=== PATIENT | male | born 1985 | race Caucasian/White ===

== ENCOUNTER → 2016-11-02 | Outpatient (CLI) | payer BC ==
--- NOTE | 2016-11-02 12:04 | DIAGNOSTIC IMAGING REPORT ---
[facility]UB CLINICAL HISTORY: Nephrolithiasis. FINDINGS: 3 AP abdominal radiographs are compared to study dated 01/18/2016. There is a nonobstructed abdominal bowel gas pattern. There is no radiographic evidence of nephrolithiasis on today's examination. A large phlebolith is again seen in the right hemipelvis. The bony structures are intact as imaged. IMPRESSION: There is no radiographic evidence of nephrolithiasis on today's examination. Electronically signed by: Esteban Yeboah M.D. 11/02/2016 12:03 PM Dictated Date/Time: 11/02/2016 12:02 PM
== END | disposition home or self-care (01) ==
LOC: C.RAD 10:55
PROVIDERS: ATTEND Urology
DX: N20.0 Calculus of kidney (principal)

== ENCOUNTER → 2017-02-13 | Outpatient (CLI) | payer BC ==
--- NOTE | 2017-02-13 20:39 | DIAGNOSTIC IMAGING REPORT ---
KUB CLINICAL HISTORY: Orchalgia. COMPARISON STUDY: KUB November 02, 2016. FINDINGS: A right pelvic calcification is unchanged and reflects a phlebolith. No urinary calculi are identified on this exam. Renal shadows are partially obscured by stool. IMPRESSION: No urinary calculi identified. Electronically signed by: Dane Dominguez M.D. 02/13/2017 8:38 PM Dictated Date/Time: 02/13/2017 8:37 PM
== END | disposition home or self-care (01) ==
LOC: C.RAD 17:42
PROVIDERS: ATTEND Urology
DX: N50.819 Testicular pain, unspecified (principal)

== ENCOUNTER → 2017-02-14 | Outpatient (CLI) | payer BC ==
--- NOTE | 2017-02-14 11:58 | DIAGNOSTIC IMAGING REPORT ---
[facility] CLINICAL HISTORY: Epididymitis. Orchalgia. COMPARISON STUDY: None. TECHNIQUE: Grayscale and color and duplex Doppler sonography of the scrotum was performed. FINDINGS: The right testis measures 3.9 x 2.7 x 2.1 cm and the left measures 3.6 x 2.3 x 1.8 cm. Color flow within each testis is symmetric. There is no testicular mass. The right epididymis is heterogeneous, mildly enlarged and hypervascular when compared to the left. There are small right epididymal cysts. There are small bilateral hydroceles and a small left varicocele. IMPRESSION: 1. Findings suggestive of right-sided epididymitis. No abscess. 2. Normal sonographic appearance of the testes. 3. Small left varicocele and small bilateral hydroceles. Electronically signed by: Dane Dominguez M.D. 02/14/2017 11:57 AM Dictated Date/Time: 02/14/2017 11:55 AM
== END | disposition home or self-care (01) ==
LOC: C.ULTR 11:10
PROVIDERS: ATTEND Nurse Practitioner Family
DX: N45.1 Epididymitis (principal); N50.819 Testicular pain, unspecified; I86.1 Scrotal varices; N43.3 Hydrocele, unspecified

== ENCOUNTER → 2017-02-14 | Outpatient (CLI) | payer BC | END | disposition home or self-care (01) | LOC: C.LABSPEC 16:58 | PROVIDERS: ATTEND Nurse Practitioner Family | DX: N45.1 Epididymitis (principal); N50.819 Testicular pain, unspecified ==

== ENCOUNTER 2017-07-11 18:53 | Emergency (ER) | payer BC ==
[~2017-07-11] VITALS: Ht 182.9 cm; Wt 100.8 kg
[2017-07-11 18:58] VITALS: TEMP 37.1; Ht 182.9 cm; Wt 100.8 kg
[2017-07-11] MEDS ORDERED: SERT25TA PO (19:08)
[2017-07-11] MEDS ORDERED: SEPTRA DS HOME PACK 1 EA VIAL PO ONE (19:45)
[2017-07-11] MEDS ORDERED: NORCO 5/325MG HOME PACK PO ONE (19:45)
[2017-07-11] MEDS ORDERED: CEPHALEXIN 500MG HOME PACK 1 EA BTL PO ONE (19:45)
[2017-07-11] MEDS ORDERED: CEPH500C2 PO (19:48)
[2017-07-11] MEDS ORDERED: HYDR-5688 PO (19:48)
[2017-07-11] MEDS ORDERED: SULF800T23 PO (19:48)
[2017-07-11 20:41] VITALS: BP 138/85; PULSE 84; O2SAT 97
--- NOTE | 2017-07-11 21:04 | EMERGENCY ROOM VISIT NOTE ---
ED Visit Note First contact with patient: 19:24 CHIEF COMPLAINT: I have a lump under my right arm. HISTORY OF PRESENT ILLNESS: Mr. Weston is an 31-year-old white male who ambulates into the ED plating of a skin lesion just inferior to the right axillary area. Patient reports he noticed a small lump in the area approximately 4 days ago. Since that time the lesion slowly getting larger, more painful and tender. Today he noticed that it was also becoming much more redder. He did contact his family physician and an appointment was scheduled for tomorrow but he reported the pain was much more severe so came into the ED today. Currently he describes his pain as a combination of sharp, stinging and pressure. He rates his discomfort 7/10. The pain is nonradiating. The pain worsens with palpation. He has not identified any alleviating factors related to the pain. He reports she's been taken Naprosyn without relief of his discomfort. He denies any associated symptoms including a precipitating soft tissue injury, squeezing the injury. Fevers, chills, sweats, other skin eruptions, other skin color changes, upper respiratory tract symptoms, shortness of breath, abdominal pain, nausea, vomiting, decreased appetite, right upper extremity weakness/numbness/tingling. REVIEW OF SYSTEMS: 8 body systems were reviewed with the patient and found to be negative unless noted above otherwise. PAST MEDICAL HISTORY: Asthma, kidney stones, unspecified kidney surgery. CURRENT MEDICATION: Zoloft ALLERGIES TO MEDICATION: Patient denies. SOCIAL HISTORY: Patient is currently employed; he feels safe in his home environment; he denies alcohol use and admits to tobacco use. PHYSICAL EXAM: Vital Signs: Date Time Temp Pulse Resp B/P (MAP) Pulse Ox O2 Delivery O2 Flow Rate FiO2 07/11/17 20:41 84 16 138/85 97 07/11/17 18:58 37.1 92 18 143/88 98 Room Air General: 31 year-old white male in mild to moderate distress due to pain, nontoxic appearing, afebrile and hemodynamically stable. Neurological: Awake, alert and oriented to person, place and time. Answering questions appropriately and following commands. Skin: Warm, dry and pink. Right Lateral Chest Wall: Patient has a 2.5 cm indurated area. This area is not fluctuant. No pointing or drainage. There is a large stone of erythema/inflammation around this area. No lymphangitis. No local lymphadenopathy. Thorax: Lungs sounds are clear to auscultation and equal bilaterally with symmetrical chest wall movement. Abdomen: Flat, soft and nontender. Positive bowel sounds in all quadrants. No guarding or rigidity. ED COURSE: Patient is assessed as noted above. Patient's medication list was reviewed. Patient was educated about today's findings and instructed on his treatment plan ; he verbalized understanding and agreement with this plan. Patient was educated about his condition and instructed on his treatment plan; they verbalized understanding and agreement with this plan. CLINICAL IMPRESSION: Early abscess right lateral chest wall. DISPOSITION: Patient discharged to home in stable condition accompanied by xxx. PLAN: Patient was placed on 500 mg of Keflex 4 times a day and Bactrim DS 2 times a day for 10 days. Patient was placed on sliding pain scale of ibuprofen, see acetaminophen and Kiel; appropriate precautions were discussed with the patient. Additionally his name was checked in the state database and no red flags were noted. Patient was encouraged to follow-up with family physician or return to the emergency department in 36-48 hours for recheck. Patient is encouraged return ED sooner for increasing redness/swelling, red streaking, puslike drainage, fevers or any new/concerning symptoms.
== END 2017-07-11 20:48 | disposition home or self-care (01) ==
LOC: C.EDB 18:54 → C.EDD 20:48
DX: L02.213 Cutaneous abscess of chest wall (principal); J45.909 Unspecified asthma, uncomplicated

== ENCOUNTER 2017-07-13 09:12 | Emergency (ER) | payer BC ==
[~2017-07-13] VITALS: Ht 182.9 cm; Wt 97.0 kg
[~2017-07-13 09:12] MED LIST: CEPH500C2 PO; HYDR-5688 PO; SERT25TA PO; SULF800T23 PO
[2017-07-13 09:16] VITALS: TEMP 36.8; Ht 182.9 cm; Wt 97.0 kg
[2017-07-13] MEDS ORDERED: XYLOCAINE 1%/SOD BICARB 20 ML VIAL INFIL ONE (09:30)
[2017-07-13 10:06] VITALS: BP 139/88; PULSE 88; O2SAT 98
--- NOTE | 2017-07-13 16:02 | EMERGENCY ROOM VISIT NOTE ---
ED Visit Note First contact with patient: 09:15 CHIEF COMPLAINT: Wound recheck. HISTORY OF PRESENT ILLNESS: Mr. Weston is an 31-year-old white male who ambulates into the ED accompanied by his . I did see this patient 2 days ago for an early abscess. He was placed on antibiotic therapy and encouraged return to the ED for recheck in 36-48 hours. He reports since being discharged he has noted an increase in pain, any decrease in the surrounding a formation of his abscess and a slight increase in the abscess. He also reports the abscess has become fluctuant. He also notes he noted a small amount of purulent drainage from the wound this morning. Currently he describes his associated pain as a pressure sensation. He rates his discomfort 5/10. The pain is nonradiating. Pain worsens with palpation. He has not identified any alleviating factors related to the pain. He has been taking his prescribed antibiotics and narcotics for pain and infection. He denies any associated fevers, chills, sweats, other skin eruptions, other skin color changes, shortness of breath, abdominal pain, decreased appetite, nausea/ vomiting. REVIEW OF SYSTEMS: As noted above in History of Present Illness. Please see past medical history, current medications, allergies and social history from previous ED visit. PHYSICAL EXAM: Vital Signs: Date Time Temp Pulse Resp B/P (MAP) Pulse Ox O2 Delivery O2 Flow Rate FiO2 07/13/17 10:06 88 18 139/88 98 07/13/17 09:16 36.8 93 18 146/95 97 Room Air General: 31 year-old white male in no acute distress, nontoxic appearing, afebrile and hemodynamically stable. Neurological: Awake, alert and oriented to person, place and time. Answering questions appropriately and following commands. Skin: Warm, dry and pink. Right Lateral Chest: Abscess which measures about 3.2 cm in diameter. The lesion is fluctuant with pointing a small amount of purulent drainage. The is a zone of inflammation around has decreased and there continues to be no lymphangitis. Thorax: Lungs sounds are clear to auscultation and equal bilaterally with symmetrical chest wall movement. No wheezing, rales or rhonchi. No increased respiratory effort. Abdomen: Flat, soft and nontender. Positive bowel sounds in all quadrants. No guarding or rigidity. ED COURSE: Patient is assessed as noted above. Patient's medication list was reviewed. Incision and Drainage: Verbal consent was obtained after the risks and benefits were explained. The skin was prepped with betadine and a sterile field set. The area surrounding the abscess was anesthetized with 4.8 ml of 1% buffered lidocaine. The abscess cavity was incised with a scalpel. Approximately 4 mL of purulent material was drained from the abscess and more was expressed. Aerobic cultures were obtained and are currently pending. The abscess cavity was sharply dissected with iris scissors to break up loculations and a small amount of additional purulent drainage was expressed. Copious irrigation was performed using sterile saline. The abscess cavity was cleaned out with a cotton tip applicator dipped in Betadine. Hemostasis was achieved. Iodoform gauze packing was inserted into the abscess. A sterile dressing was applied. No complications and the patient tolerated the procedure well. Patient was educated about his condition and instructed on his treatment plan; he verbalized understanding and agreement with this plan. CLINICAL IMPRESSION: Abscess of the chest wall. DISPOSITION: Patient discharged to home in stable condition accompanied by ; prior to departure he was reassessed and rated his discomfort 2/10. PLAN: Patient was encouraged to continue his antibiotics and other pain medications as prescribed. Patient is to follow-up with his family physician return to emergency department in 36-48 hours for recheck of his abscess, possible removal of his packing, or sooner if he would develop any fevers, increasing pain or red streaking or any new/concerning symptoms.
== END 2017-07-13 10:07 | disposition home or self-care (01) ==
LOC: C.EDB 09:13 → C.EDA 10:07
DX: L02.213 Cutaneous abscess of chest wall (principal)

== ENCOUNTER 2017-07-15 15:50 | Emergency (ER) | payer BC ==
[~2017-07-15] VITALS: Ht 182.9 cm; Wt 100.2 kg
[~2017-07-15 15:50] MED LIST changes: -HYDR-5688 PO
[2017-07-15 16:00] VITALS: Ht 182.9 cm; Wt 100.2 kg
[2017-07-15 16:17] VITALS: BP 141/92; PULSE 74; TEMP 36.9; O2SAT 96
--- NOTE | 2017-07-16 17:02 | EMERGENCY ROOM VISIT NOTE ---
ED Visit Note First contact with patient: 16:07 Chief Complaint: Wound recheck. History of Present Illness: Mr. Weston is a 31-year-old white male who ambulates into the ED requesting a recheck of his abscess and possible packing removal. I seen this patient 2 days ago and performed an I&D or seizure on a skin abscess that was over the lateral right chest wall below the axillary area. Patient reports since being discharge in his procedure he is feeling much better. Currently he reports a mild pain in that area that is rated 2/10. His tender to palpation. He has noted decreasing redness and swelling. He has not appreciated any increasing signs of infection including red streaking , fevers or purulent drainage. Review of Systems: As noted above in history of present illness. Physical Examination: Vital Signs: Date Time Temp Pulse Resp B/P (MAP) Pulse Ox O2 Delivery O2 Flow Rate FiO2 07/15/17 16:17 36.9 74 18 141/92 96 Room Air 07/15/17 16:00 36.9 73 18 135/83 97 Room Air GENERAL: 31-year-old male in no acute distress, nontoxic-appearing, afebrile and hemodynamically stable. NEUROLOGICAL: Awake, alert and oriented to person, place and time. Answering questions appropriately and following commands. SKIN: Warm, dry and pink. Right Lateral Chest Wall well healing abscess. Decrease in erythema and edema. No lymphangitis. THORAX: Lungs sounds are clear to auscultation and equal bilaterally with symmetrical chest wall. After removal of the bandaging and packing patient's abscess was reassessed and had no additional purulent drainage. No local lymphadenopathy. ED Course: Patient is assessed as noted above. Patient's medication list was reviewed. After packing removal and evaluation patient's wound was covered with a large Band-Aid. Patient was educated about today's findings and instructed on his treatment plan ; he verbalized understanding and agreement with this plan. Clinical Impression: Wound check. Packing removal. Disposition: Patient discharged home in stable condition and subjectively reported he was pain-free. Plan: Issues encouraged to continue his current pain medications as needed. Patient is encouraged to continue his antibiotics until completed. Patient was encouraged to follow-up with his PCP towards the end of his antibiotics for recheck. Patient was educated on worsening signs of infection encouraged return to the ED for any worsening signs of infection or any new/concerning symptoms.
== END 2017-07-15 16:24 | disposition home or self-care (01) ==
LOC: C.EDB 15:52 → C.EDD 16:24
DX: Z48.01 Encounter for change or removal of surgical wound dressing (principal)

== ENCOUNTER 2019-11-04 17:51 | Observation (INO) ==
[~2019-11-04 17:51] MED LIST changes: -CEPH500C2 PO; +CHECK SCOPOLAMINE PATCH PLACEMENT SCH; -SERT25TA PO; -SULF800T23 PO
[2019-11-04] MEDS ORDERED: ONDANSETRON INJ 2 MG/ML 2 ML VIAL IV STA (18:00)
[2019-11-04] MEDS ORDERED: SODIUM CHLORIDE 0.9% 1000ML 1,000 ML IV SCH (18:00)
--- NOTE | 2019-11-04 18:00 | Emergency Department Note ---
History of Present Illness General Chief complaint: Abdominal Pain Stated complaint: LOWER ABDOMINAL PAIN Time Seen by Provider: 11/04/19 17:55 History of Present Illness Maximum Pain Intensity: 6 The patient is a 33-year-old male who presented to the emergency department for an evaluation of right lower quadrant abdominal pain. The patient started having abdominal pain last night into this morning. The pain does not appear to go into his testicles. He does not have specific flank pain. Initially the pain was sharp and stabbing but it has since become constant. The pain is wors ened with any movement. The patient is moderate and worsens with any movement or palpation over the area. He also complains of nausea. He does not notice any vomiting. He has no back pain at this time. He has no inguinal swelling that he reports. The patient did take Tylenol with some relief in his pain. The patient called his primary care physician but did not receive a phone call back so he presented to the emergency department. He does have a family member who works with urology and he has a history of kidney stones so he was sent for a KUB today but this did not show any acute disease. The patient denies any fevers or traveling at this time. Home Medications Home Medications Medication Instructions Recorded Confirmed Type levofloxacin 500 mg tablet 500 mg PO DAILY 10 Days #10 tab 10/06/19 10/06/19 Rx meloxicam 7.5 mg tablet 7.5 mg PO DAILY #30 tab 10/06/19 10/06/19 Rx Allergies Allergy/AdvReac Type Severity Reaction Status Date / Time No Known Allergies Allergy Verified 10/06/19 13:32 Past Med/Surg History Medical History Asthma History of nephrolithiasis Surgical History H/O lithotripsy History of dental surgery Family History Other No pertinent family history Social History Feels Safe at Home: Yes Smoking Status: Current every day smoker Hx Alcohol Use: Yes Review of Systems See HPI for pertinent positives & negatives. and A total of 10 systems reviewed and were otherwise negative Physical Exam Vital Signs Vital Signs - 24 hr 11/04/19 17:53 11/04/19 19:06 Temperature 36.8 C Temperature Source Oral Pulse Rate 88 75 Respiratory Rate 20 20 Respiratory Effort / Characteristics Non-Labored Spontaneous Respiratory Depth Normal Respiratory Pattern Regular Blood Pressure 160/99 H 138/98 Blood Pressure Mean 119 Blood Pressure Position Sitting Pulse Oximetry 96 98 Oxygen Delivery Method Room Air Room Air Sepsis Recent Fever Within 48 Hours No Sepsis New/Unexplained Change in Mental Status No Sepsis Action Taken by Nursing No Action Required GENERAL: Patient is awake alert in no acute distress patient is resting comfortably and showing no signs of anxiety EYES: The conjunctivae are clear. The pupils are round and reactive. EARS, NOSE, MOUTH AND THROAT: The nose is without any evidence of any deformity. Mucous membranes are moist. Tongue is midline. NECK: The neck is nontender and supple. RESPIRATORY: Normal respiratory effort is noted there is no evidence of wheezing rhonchi or rales CARDIOVASCULAR: Regular rate and rhythm noted there no murmurs rubs or gallops normal S1 normal S2. GASTROINTESTINAL: The abdomen is flat. There is significant lower abdominal tenderness to palpation. Mild guarding is noted in the right lower quadrant with significant palpable tenderness in the left lower quadrant. BACK: No midline tenderness or or step-off noted range of motion in flexion extension as well as rotation no signs of muscle spasm noted MUSCULOSKELETAL/EXTREMITIES: There is no evidence of gross deformity full range of motion is noted in the hips and shoulders. SKIN: There is no obvious evidence of any rash. There are no petechiae, pallor or cyanosis noted. NEUROLOGIC: Patient is awake alert and oriented x3. Course Course 1850 I discussed this case with the on-call general surgeon, Dr. Mejía. He is agreed to evaluate the patient in the emergency department for further management and disposition. Administered Medications Ioversol (Optiray 320 100ml) 94 ml IV ONCE PRN PRN Reason: Interaction Checking Stop: 11/08/19 18:27 Last Admin: 11/04/19 18:29 Dose: 94 ml Documented by: [id number] Discontinued Medications Sodium Chloride (Nss 1000ml) 1,000 mls @ 999 mls/hr IV .[id number] DANIELLA Stop: 11/04/19 19:00 Last Admin: 11/04/19 18:11 Dose: 999 mls/hr Documented by: [id number] Ondansetron HCl (Zofran) 4 mg IV NOW STA Stop: 11/04/19 18:01 Last Admin: 11/04/19 18:11 Dose: 4 mg Documented by: [id number] Medical Decision Making Differential Diagnosis Etiologies such as appendicitis, diverticulitis, obstruction, inflammatory bowel disease, renal colic, PUD, biliary pathology, pancreatitis, mesenteric ischemia, aortic pathology, infections, genitourinary, UTI, perforated viscus, as well as others were entertained. Medical Records Attestation: I reviewed the patient's medical records. Home Medications Current Medication List: was personally reviewed by me Laboratory Data Attestation: I reviewed the patient's lab results. Result diagrams: 11/04/19 18:08 11/04/19 18:08 Lab Results 11/04/19 11/04/19 11/04/19 Range/Units 18:05 18:08 18:08 WBC 11.27 H (4.8-10.8) K/uL RBC 5.02 (4.7-6.1) M/uL Hgb 15.8 (14.0-18.0) g/dL POC Hgb (14.0-18.0) g/dl Hct 44.4 (42-52) % POC Hct (42-52) % MCV 88.4 (80-100) fL MCH 31.5 (25-34) pg MCHC 35.6 (32-36) g/dL RDW Std Deviation 39.9 (36.4-46.3) fL RDW Coeff of Venkat 12.6 (11.5-14.5) % Plt Count 212 (130-400) K/uL MPV 11.0 H (7.4-10.4) fL Immature Gran % (Auto) 0.3 % Neut % (Auto) 66.1 % Lymph % (Auto) 25.5 % [place] % (Auto) 7.0 % Eos % (Auto) 1.0 % Baso % (Auto) 0.1 % Immature Gran # (Auto) 0.03 H (0.00-0.02) K/uL Neut # (Auto) 7.46 H (1.4-6.5) K/uL Lymph # (Auto) 2.87 (1.2-3.4) K/uL [place] # (Auto) 0.79 H (0.11-0.59) K/uL Eos # (Auto) 0.11 (0-0.5) K/uL Baso # (Auto) 0.01 (0-0.2) K/uL POC Sodium (135-144) mmol/L Sodium 138 (136-145) mmol/L POC Potassium (3.3-5.0) mmol/L Potassium 3.8 (3.5-5.1) mmol/L POC Chloride (101-112) mmol/L Chloride 108 H (98-107) mmol/L Carbon Dioxide 24 (21-32) mmol/L POC Total CO2 (24-31) mEq/l Anion Gap 6.0 (3-11) POC Anion Gap (16-25) mmol/L POC BUN (7-18) mg/dl BUN 14 (7-18) mg/dl Creatinine 0.99 (0.6-1.4) mg/dl POC Creatinine (0.6-1.3) mg/dl Est Cr Clr Drug Dosing 130.9 ml/min Est GFR ( Amer) 114.7 Est GFR (Non-Af Amer) 99.0 BUN/Creatinine Ratio 14.5 (10-20) Glucose 118 H (70-99) mg/dl POC Glucose (other) (70-99) mg/dl Calcium 9.3 (8.5-10.1) mg/dl POC Ioniz Calcium [place] (1.12-1.32) mmol/l Total Bilirubin 0.6 (0.2-1) mg/dl AST 34 (15-37) U/L ALT 46 (12-78) U/L Alkaline Phosphatase 83 (45-117) U/L Total Protein 7.3 (6.4-8.2) gm/dl Albumin 4.0 (3.4-5.0) gm/dl Globulin 3.3 (2.5-4.0) gm/dl Albumin/Globulin Ratio 1.2 (0.9-2) Lipase 157 (73-393) U/L Urine Color Yellow Urine Appearance Clear (Clear) Urine pH 7.0 (4.5-7.5) Ur Specific [place] 1.024 (1.000-1.030) Urine Protein Negative (Negative) Urine Glucose (UA) Negative (Negative) Urine Ketones Negative (Negative) Urine Blood Negative (Negative) Urine Nitrite Negative (Negative) Urine Bilirubin Negative (Negative) Urine Urobilinogen Negative (Negative) Ur Leukocyte Esterase Negative (Negative) 11/04/19 Range/Units 18:16 WBC (4.8-10.8) K/uL RBC (4.7-6.1) M/uL Hgb (14.0-18.0) g/dL POC Hgb 15.3 (14.0-18.0) g/dl Hct (42-52) % POC Hct 45 (42-52) % MCV (80-100) fL MCH (25-34) pg MCHC (32-36) g/dL RDW Std Deviation (36.4-46.3) fL RDW Coeff of Venkat (11.5-14.5) % Plt Count (130-400) K/uL MPV (7.4-10.4) fL Immature Gran % (Auto) % Neut % (Auto) % Lymph % (Auto) % [place] % (Auto) % Eos % (Auto) % Baso % (Auto) % Immature Gran # (Auto) (0.00-0.02) K/uL Neut # (Auto) (1.4-6.5) K/uL Lymph # (Auto) (1.2-3.4) K/uL [place] # (Auto) (0.11-0.59) K/uL Eos # (Auto) (0-0.5) K/uL Baso # (Auto) (0-0.2) K/uL POC Sodium 139 (135-144) mmol/L Sodium (136-145) mmol/L POC Potassium 3.9 (3.3-5.0) mmol/L Potassium (3.5-5.1) mmol/L POC Chloride 104 (101-112) mmol/L Chloride (98-107) mmol/L Carbon Dioxide (21-32) mmol/L POC Total CO2 23 L (24-31) mEq/l Anion Gap (3-11) POC Anion Gap 16.0 (16-25) mmol/L POC BUN 15 (7-18) mg/dl BUN (7-18) mg/dl Creatinine (0.6-1.4) mg/dl POC Creatinine 0.9 (0.6-1.3) mg/dl Est Cr Clr Drug Dosing ml/min Est GFR ( Amer) Est GFR (Non-Af Amer) BUN/Creatinine Ratio (10-20) Glucose (70-99) mg/dl POC Glucose (other) 114 H (70-99) mg/dl Calcium (8.5-10.1) mg/dl POC Ioniz Calcium [place] 1.23 (1.12-1.32) mmol/l Total Bilirubin (0.2-1) mg/dl AST (15-37) U/L ALT (12-78) U/L Alkaline Phosphatase (45-117) U/L Total Protein (6.4-8.2) gm/dl Albumin (3.4-5.0) gm/dl Globulin (2.5-4.0) gm/dl Albumin/Globulin Ratio (0.9-2) Lipase (73-393) U/L Urine Color Urine Appearance (Clear) Urine pH (4.5-7.5) Ur Specific [place] (1.000-1.030) Urine Protein (Negative) Urine Glucose (UA) (Negative) Urine Ketones (Negative) Urine Blood (Negative) Urine Nitrite (Negative) Urine Bilirubin (Negative) Urine Urobilinogen (Negative) Ur Leukocyte Esterase (Negative) Imaging Data Radiologist's Impression: CT abd pelvis IV con only CT DOSE: 742.50 mGy.cm HISTORY: Flank pain RLQ pain TECHNIQUE: Multiaxial CT images of the abdomen and pelvis were performed following the use of intravenous contrast. A dose lowering technique was utilized adhering to the principles of ALARA. COMPARISON STUDY: None. FINDINGS: The lung bases are clear. Liver spleen and pancreas are unremarkable. Kidneys enhance uniformly. No evidence for hydronephrosis. The upper abdominal bowel pattern is nonobstructive. The appendix is slightly distended at approximately 8 to 9 mm. There is no significant periappendiceal infiltrative change. There is no evidence for abscess or collection. Scattered colonic diverticuli. No evidence for acute diverticulitis. No free fluid within the pelvis or flank regions. IMPRESSION: 1. Low-grade appendicitis with the appendix having a maximum diameter approximate 8 to 9 mm 2. No significant periappendiceal infiltrative change. 3. No evidence for drainable abscess or collection. ACT 112: Negative or not required by law. The above report was generated using voice recognition software. It may contain grammatical, syntax or spelling errors. Electronically signed by: Tip Mckeon M.D. 11/04/2019 6:34 PM Dictated: 11/04/191830 Transcribed: 11/04/191830 Blood Pressure Blood Pressure Findings: Elevated blood pressure Blood Pressure Disposition: elevated BP felt to be situational MDM Narrative The patient is a 33-year-old male who presented to the emergency department for an evaluation of lower abdominal pain. The patient started having abdominal pain last night into today. His history and physical exam appear to be consistent with possible appendicitis. White blood cell count was found to be elevated. For this reason CT the abdomen and pelvis was obtained. I discussed the patient's laboratory and radiographic studies with him. He was treated with IV fluids and IV antiemetics. He is feeling somewhat improved on reevaluation. His CAT scan appear to be consistent with appendicitis. His history and physical exam also appear to be consistent appendicitis. For this reason I discussed his case with the on-call general surgeon. They have agreed to evaluate the patient in the emergency department for further management and disposition. The patient was reevaluated multiple times. Impression & Plan Acute appendicitis, Abdominal pain Discharge Plan Visit Data Chief Complaint: Abdominal Pain Stated Complaint: LOWER ABDOMINAL PAIN ED Provider: Mor Bernstein Discharge Problem: Acute appendicitis, Abdominal pain Patient Disposition: Being Evaluated by Surgeon Condition: Good Discharge Instructions Interventions: ED Discharge Assessment Last Done: 11/04/19 19:06 Forms Stand Alone Forms: [employer] Prescriptions Prescriptions: No Action meloxicam 7.5 mg tablet 7.5 mg PO DAILY Qty: 30 RF: 2 levofloxacin [Levaquin] 500 mg tablet 500 mg PO DAILY 10 Days Qty: 10 RF: 0 Referrals Referrals: Katherine Malagon MD [Primary Care Provider] - Discharge Problem: Acute appendicitis Qualifiers: Acute appendicitis type: with localized peritonitis Appendicitis gangrene presence: without gangrene Appendicitis perforation presence: without per foration Appendicitis abscess presence: without abscess Qualified Code(s): K35.30 - Acute appendicitis with localized peritonitis, without perforation or gangrene Abdominal pain Qualifiers: Abdominal location: right lower quadrant Qualified Code(s): R10.31 - Right lower quadrant pain
[2019-11-04 18:21] LABS: Basophils # (auto) 0.01 K/uL (0-0.2); Basophils % (auto) 0.1 %; Eosinophils # (auto) 0.11 K/uL (0-0.5); Hematocrit (blood only) 44.4 % (42-52); Hemoglobin 15.8 g/dL (14.0-18.0); Immature Granulocytes # (auto) 0.03 K/uL (0.00-0.02); Immature Granulocytes % (auto) 0.3 %; Lymphocytes # (auto) 2.87 K/uL (1.2-3.4); Lymphocytes % (auto) 25.5 %; Mean Corpuscular Hemoglobin 31.5 pg (25-34); Mean Corpuscular Hgb Conc 35.6 g/dL (32-36); Mean Corpuscular Volume 88.4 fL (80-100); Monocytes # (auto) 0.79 K/uL (0.11-0.59); Neutrophils # (auto) 7.46 K/uL (1.4-6.5); Neutrophils % (auto) 66.1 %; Platelet Count 212 K/uL (130-400); RDW Coefficient of Variation 12.6 % (11.5-14.5); RDW Standard Deviation 39.9 fL (36.4-46.3); Red Blood Count 5.02 M/uL (4.7-6.1); White Blood Count 11.27 K/uL (4.8-10.8)
[2019-11-04 18:28] LABS: Appearance Urine Clear (Clear); Bilirubin Urine Negative (Negative); Blood Urine Negative (Negative); Color Urine Yellow; Glucose Urine UA Negative (Negative); Ketones Urine Negative (Negative); Leukocyte Esterase Urine Negative (Negative); Nitrite Urine Negative (Negative); Protein Urine Negative (Negative); Specific Gravity Urine 1.024 (1.000-1.030); Urobilinogen Urine Negative (Negative)
[2019-11-04] MEDS ORDERED: IOVERSOL 100ml IV PRN (18:28)
[2019-11-04 18:29] LABS: iSTAT Creatinine 0.9 mg/dl (0.6-1.3); iSTAT Hemoglobin 15.3 g/dl (14.0-18.0); iSTAT Ionized Calcium 1.23 mmol/l (1.12-1.32); iSTAT Potassium 3.9 mmol/L (3.3-5.0)
--- NOTE | 2019-11-04 18:36 | CT Scan Report ---
CT abd pelvis IV con only CT DOSE: 742.50 mGy.cm HISTORY: Flank pain RLQ pain TECHNIQUE: Multiaxial CT images of the abdomen and pelvis were performed following the use of intrave nous contrast. A dose lowering technique was utilized adhering to the principles of ALARA. COMPARISON STUDY: None. FINDINGS: The lung bases are clear. Liver spleen and pancreas are unremarkable. Kidneys enhance unifo rmly. No evidence for hydronephrosis. The upper abdominal bowel pattern is nonobstructive. The appendix is slightly distended at approximat kathleen 8 to 9 mm. There is no significant periappendiceal infiltrative change. There is no evidence for abscess or collection. Scattered colonic diverticuli. No evidence for acute diverticulitis. No free fluid within the pelvis or flank regions. IMPRESSION: 1. Low-grade appendicitis with the appendix having a maximum diameter approximate 8 to 9 mm 2. No significant periappendiceal infiltrative change. 3. No evidence for drainable abscess or collection. ACT 112: Negative or not required by law. The above report was generated using voice recognition software. It may contain grammatical, syntax or spelling errors. Electronically signed by: Tip Mckeon M.D. 11/04/2019 6:34 PM
[2019-11-04 18:42] LABS: BUN Creatinine Ratio 14.5 (10-20); Calcium 9.3 mg/dl (8.5-10.1); Creatinine Clr Calc Pharmacy 130.9 ml/min; Est GFR (African American) 114.7; Potassium 3.8 mmol/L (3.5-5.1)
[2019-11-04 18:45] LABS: Albumin Globulin Ratio 1.2 (0.9-2); Bilirubin,Total 0.6 mg/dl (0.2-1); Globulin 3.3 gm/dl (2.5-4.0); Total Protein 7.3 gm/dl (6.4-8.2)
[2019-11-04] MEDS ORDERED: BUPIVACAINE 0.5 % 5 MG/1 ML MPF 30ML VIAL ONE (19:02)
[2019-11-04] MEDS ORDERED: PROPOFOL IV EMULSION 10 MG/ML 20 ML VIAL IV ONE (19:15)
[2019-11-04] MEDS ORDERED: LIDOCAINE HCL 2% 2 ML VIAL/AMP(20MG/ML) INFIL ONE (19:15)
[2019-11-04] MEDS ORDERED: SUCCINYLCHOLINE CHLORIDE 20 MG/ML 10 ML VIAL ONE (19:15)
[2019-11-04] MEDS ORDERED: fentaNYL citrate 100 MCG/2 ML VIAL ONE ×3 (19:15→19:31)
--- NOTE | 2019-11-04 19:22 | History & Physical Report ---
Date of Service November 04, 2019 Assessment & Plan (1) Acute appendicitis: 33-year-old male with acute appendicitis Plan for laparoscopic appendectomy The risk the procedure were discussed to include but not limited to bleeding, infection, normal appendix, open surgery, damage surrounding structures, need for future or more extensive surgery, abscess, and the risk of anesthesia Admit for observation postoperatively Diagnosis, details of the procedure and recovery, and plan of care discussed with the patient, all questions were answered, the patient expressed understanding and agrees the plan of care as stated History of Present Illness Primary Care Provider: Katherine Malagon MD 33-year-old male presented to the emergency department for right lower quadrant abdominal pain. Pain woke him up from sleep at around 2 or 3:00 this morning. He was able to fall back asleep with the pain returned and woke him up again. He has had intermittent right lower quadrant abdominal pain, sometimes sharp, sometimes dull and achy since then. He did vomit this morning. He ate at lunch but did not feel much like eating. He has a history of kidney stones in the past but this does not feel like that. He has never had symptoms like this before. No personal or family history of inflammatory bowel disease. Allergies Allergy/AdvReac Type Severity Reaction Status Date / Time No Known Allergies Allergy Verified 10/06/19 13:32 Home Medications Home Medications Medication Instructions Recorded Confirmed Type levofloxacin 500 mg tablet 500 mg PO DAILY 10 Days #10 tab 10/06/19 10/06/19 Rx meloxicam 7.5 mg tablet 7.5 mg PO DAILY #30 tab 10/06/19 10/06/19 Rx Past Med/Surg History Medical History Asthma History of nephrolithiasis Surgical History H/O lithotripsy History of dental surgery Family History Other No pertinent family history Social History Feels Safe at Home: Yes Smoking Status: Current every day smoker Hx Alcohol Use: Yes Review of Systems Review of Systems: All systems reviewed & are unremarkable except as noted in HPI & below Physical Exam Constitutional: WD/WN, vitals as above Eyes: PERRL, conjunctivae normal, anicteric sclerae ENMT: external ear and nose normal, oropharynx normal Neck: trachea midline, no thyromegaly Respiratory: normal respiratory effort, lungs clear to auscultation Cardiovascular: RRR, no murmur, no edema Gastrointestinal (Abdomen): Percussion/Palpation: + abdomen tender (Tender to palpation in the right lower quadrant McBurney's point with localized guarding), + guarding and abdomen soft; abdomen not rigid and no hepatosplenomegaly Musculoskeletal: no cyanosis or clubbing, extremities motor strength 5/5 Skin: no rashes, warm and dry Neurologic: PERRL, EOMI, accommodation nl, no face palsy, no dysarthria Psychiatric: A+Ox3, euthymic affect Lymphatic: no cervical or axillary lymphadenopathy Results & Data Results & Data ([facility]) Vital Signs (Past 12 Hours) Vital Signs Temp Pulse Resp BP Pulse Ox 11/04/19 19:06 75 20 138/98 98 11/04/19 17:53 36.8 C 88 20 160/99 H 96 Laboratory Results Laboratory Results - last 24 hr 11/04/19 11/04/19 11/04/19 18:05 18:08 18:08 WBC 11.27 H RBC 5.02 Hgb 15.8 POC Hgb Hct 44.4 POC Hct MCV 88.4 MCH 31.5 MCHC 35.6 RDW Std Deviation 39.9 RDW Coeff of Venkat 12.6 Plt Count 212 MPV 11.0 H Immature Gran % (Auto) 0.3 Neut % (Auto) 66.1 Lymph % (Auto) 25.5 [place] % (Auto) 7.0 Eos % (Auto) 1.0 Baso % (Auto) 0.1 Immature Gran # (Auto) 0.03 H Neut # (Auto) 7.46 H Lymph # (Auto) 2.87 [place] # (Auto) 0.79 H Eos # (Auto) 0.11 Baso # (Auto) 0.01 POC Sodium Sodium 138 POC Potassium Potassium 3.8 POC Chloride Chloride 108 H Carbon Dioxide 24 POC Total CO2 Anion Gap 6.0 POC Anion Gap POC BUN BUN 14 Creatinine 0.99 POC Creatinine Est Cr Clr Drug Dosing 130.9 Est GFR ( Amer) 114.7 Est GFR (Non-Af Amer) 99.0 BUN/Creatinine Ratio 14.5 Glucose 118 H POC Glucose (other) Calcium 9.3 POC Ioniz Calcium [place] Total Bilirubin 0.6 AST 34 ALT 46 Alkaline Phosphatase 83 Total Protein 7.3 Albumin 4.0 Globulin 3.3 Albumin/Globulin Ratio 1.2 Lipase 157 Urine Color Yellow Urine Appearance Clear Urine pH 7.0 Ur Specific [place] 1.024 Urine Protein Negative Urine Glucose (UA) Negative Urine Ketones Negative Urine Blood Negative Urine Nitrite Negative Urine Bilirubin Negative Urine Urobilinogen Negative Ur Leukocyte Esterase Negative 11/04/19 18:16 WBC RBC Hgb POC Hgb 15.3 Hct POC Hct 45 MCV MCH MCHC RDW Std Deviation RDW Coeff of Venkat Plt Count MPV Immature Gran % (Auto) Neut % (Auto) Lymph % (Auto) [place] % (Auto) Eos % (Auto) Baso % (Auto) Immature Gran # (Auto) Neut # (Auto) Lymph # (Auto) [place] # (Auto) Eos # (Auto) Baso # (Auto) POC Sodium 139 Sodium POC Potassium 3.9 Potassium POC Chloride 104 Chloride Carbon Dioxide POC Total CO2 23 L Anion Gap POC Anion Gap 16.0 POC BUN 15 BUN Creatinine POC Creatinine 0.9 Est Cr Clr Drug Dosing Est GFR ( Amer) Est GFR (Non-Af Amer) BUN/Creatinine Ratio Glucose POC Glucose (other) 114 H Calcium POC Ioniz Calcium [place] 1.23 Total Bilirubin AST ALT Alkaline Phosphatase Total Protein Albumin Globulin Albumin/Globulin Ratio Lipase Urine Color Urine Appearance Urine pH Ur Specific [place] Urine Protein Urine Glucose (UA) Urine Ketones Urine Blood Urine Nitrite Urine Bilirubin Urine Urobilinogen Ur Leukocyte Esterase Diagnostic Findings T abd pelvis IV con only CT DOSE: 742.50 mGy.cm HISTORY: Flank pain RLQ pain TECHNIQUE: Multiaxial CT images of the abdomen and pelvis were performed following the use of intravenous contrast. A dose lowering technique was utilized adhering to the principles of ALARA. COMPARISON STUDY: None. FINDINGS: The lung bases are clear. Liver spleen and pancreas are unremarkable. Kidneys enhance uniformly. No evidence for hydronephrosis. The upper abdominal bowel pattern is nonobstructive. The appendix is slightly distended at approximately 8 to 9 mm. There is no significant periappendiceal infiltrative change. There is no evidence for abscess or collection. Scattered colonic diverticuli. No evidence for acute diverticulitis. No free fluid within the pelvis or flank regions. IMPRESSION: 1. Low-grade appendicitis with the appendix having a maximum diameter approximate 8 to 9 mm 2. No significant periappendiceal infiltrative change. PG Care Time/CCT Total # of Minutes Spent Total Time Spent with Patient: Total time spent is greater than 50% in c oordination of care (as documented) at patient's floor/unit and/or counseling patient: Coding Level of Care Code 12325 OBS Care - Level 2 Diagnoses Acute appendicitis K35.30 Acute appendicitis type: with localized peritonitis Appendicitis abscess presence: without abscess Appendicitis gangrene presence: without gangrene Appendicitis perforation presence: without perforation (1) Acute appendicitis Acute appendicitis type: with localized peritonitis Appendicitis abscess presence: without abscess Appendicitis gangrene presence: without gangrene Appendicitis perforation presence: without perforation Qualified Code(s): K35.30 - Acute appendicitis with localized peritonitis, without perforation or gangrene
[2019-11-04] MEDS ORDERED: SCOPOLAMINE 1.5 MG TDSY ONE (19:23)
--- NOTE | 2019-11-04 19:24 | Anesthesiology Consultation ---
Date of Service November 04, 2019 Assessment & Plan (1) Encounter for pre-operative examination: Chart Review Chart Review: Acceptable Risk for Surgery Consults Requested none ASA [id number] Proposed Anesthesia Anesthesia Type: General Risk / Benefits Reviewed With: PT / POA / Parent / Guardian, Accepts Plan and Informed Consent Obtained History Surgery Operation Date: 11/04/19 19:30 Proposed Procedures p Laparoscopic Appendectomy - Von Quan, , FACS Height/Weight Height: 6 ft Weight: 103.7 kg Allergies Allergy/AdvReac Type Severity Reaction Status Date / Time No Known Allergies Allergy Verified 10/06/19 13:32 Medications Home Medications Medication Instructions Recorded Confirmed Last Taken levofloxacin 500 mg tablet 500 mg PO DAILY 10 Days #10 tab 10/06/19 10/06/19 Unknown meloxicam 7.5 mg tablet 7.5 mg PO DAILY #30 tab 10/06/19 10/06/19 Unknown Active Medications Generic Name Dose Route Start Last Admin Trade Name Freq PRN Reason Stop Dose Admin Ioversol 94 ml 11/04/19 18:28 11/04/19 18:29 Optiray 320 100ml IV 11/08/19 18:27 94 ml ONCE PRN Administration Interaction Checking NPO Date Last Intake of Fluids: 11/04/19 Time Last Intake of Fluids: 15:00 Date Last Intake of Solids: 11/04/19 Time Last Intake of Solids: 12:00 Past Medical History Medical History Asthma History of nephrolithiasis Exercise / Class Metabolic Activity II 4-5 Yardwork/Stairs/Walk up hill Past Family History Family History Other No pertinent family history Past Surgical History Surgical History H/O lithotripsy History of dental surgery Past Anesthesia History No Hx of Anesthesia Complications and No Family Hx of Anesthesia Complications History of PONV No Hx of PONV and No Hx of Motion Sickness Social History Smoking Status: Current every day smoker Hx Alcohol Use: Yes Physical Exam Vital Signs Last Vital Signs Temp 98.2 F 11/04/19 17:53 Pulse 75 11/04/19 19:06 Resp 20 11/04/19 19:06 BP 138/98 11/04/19 19:06 Pulse Ox 98 11/04/19 19:06 ENMT Mouth: no dentition abnormality Thyromental Distance: > or= 3.5 Finger Breadths Mallampati Class: II Neck normal visual inspection Respiratory normal respiratory effort Auscultation: lungs clear to auscultation bilaterally Cardiovascular Rate/Rhythm: regular rate and regular rhythm Testing Laboratory Results 11/04/19 18:08 11/04/19 18:08 Urine Color Yellow 11/04/19 18:05 Urine Appearance Clear (Clear) 11/04/19 18:05 Urine pH 7.0 (4.5-7.5) 11/04/19 18:05 Ur Specific [place] 1.024 (1.000-1.030) 11/04/19 18:05 Urine Protein Negative (Negative) 11/04/19 18:05 Urine Glucose (UA) Negative (Negative) 11/04/19 18:05 Urine Ketones Negative (Negative) 11/04/19 18:05 Urine Nitrite Negative (Negative) 11/04/19 18:05 Ur Leukocyte Esterase Negative (Negative) 11/04/19 18:05 11/04/19 18:16 POC Glucose (other) 114 H
[2019-11-04] MEDS ORDERED: fentaNYL citrate 100 MCG/2 ML VIAL IV PRN (19:26)
[2019-11-04] MEDS ORDERED: METOCLOPRAMIDE HCL INJ 5 MG/ML 2 ML VIAL IV PRN (19:26)
[2019-11-04] MEDS ORDERED: ONDANSETRON INJ 2 MG/ML 2 ML VIAL IV PRN ×2 (19:26→21:26)
[2019-11-04] MEDS ORDERED: ATROPINE SULFATE 0.1 MG/ML 10ML SYR IV PRN (19:26)
[2019-11-04] MEDS ORDERED: ePHEDrine sulfate 50 MG/ML AMP IV PRN (19:26)
[2019-11-04] MEDS ORDERED: SCOPOLAMINE 1.5 MG TDSY TD ONE (19:28)
[2019-11-04] MEDS ORDERED: cefOXitin 2,000 MG in DEXTROSE 5% 50 ML IV SCH (20:00)
[2019-11-04] MEDS ORDERED: ROCURONIUM BROMIDE 10 MG/ML 5 ML VIAL ONE (20:01)
--- NOTE | 2019-11-04 20:18 | Operative Report ---
PG Post Operative Report Pre & Post Diagnosis Operation Date: 11/04/19 19:30 Pre-Op Diagnosis: Acute appendicitis Post-Op Diagnosis: Acute appendicitis I identified the patient and participated in the time-out.: Yes Procedure Operation Date: 11/04/19 19:30 Actual Procedures p Laparoscopic Appendectomy(Not Applicable) - Von Quan DO, FACS Surgeon Von Quan DO, FACS Suspender Cutter None Estimated Blood Loss 4 Findings Consistent with Post-Op Diagnosis Acute, nonperforated appendicitis Specimens Appendix Anesthesia Type General Complications none Disposition Accompanied Patient To Recovery: No Disposition: Recovery Room Indications 33-year-old male presented to the emergency department with signs and symptoms of appendicitis confirmed by CT scan. Plan for laparoscopic appendectomy. The risks of the procedure were discussed, all questions were answered, and the patient agreed to proceed with surgery as planned. Description of Procedure The patient was properly identified, consented, and taken to the operating room where he was placed in the supine position. General endotracheal anesthesia was induced. SCDs and a safety belt were placed. Preoperative antibiotics were administered. A Holloway catheter was not placed. The patient's abdomen was prepped and draped in the standard sterile fashion. Surgical timeout was performed and all parties were in agreement that this was the correct patient and procedure to be performed and we continued as planned. A curvilinear infraumbilical incision was made with electrocautery and deepened down to the fascia with blunt dissection. The base of the umbilicus was grasped with a Darius and elevated towards the ceiling. An incision was made in the midline fascia with a knife and entry into the peritoneum was confirmed. Stay suture of 0 Vicryl was placed and a Larson trocar was inserted. The abdomen was insufflated with carbon dioxide which the patient tolerated without incident. The laparoscope was inserted and no damage from initial trocar placement was noted, no gross abnormalities were noted within the 4 quadrants the abdomen. 5 mm ports were then placed in the left lower quadrant with care not to damage the epigastric vessels, and in the suprapubic midline with care not to damage the bladder. The patient was placed in Trendelenburg position and rotated towards the left. The small bowel was swept away from the right lower quadrant. The cecum was grasped with an atraumatic grasper exposing the appendix. The appendix was moderately inflamed and there was no evidence of perforation. There was minimal fluid in the pelvis. A window was created between the base of the appendix and the mesoappendix. A whitehead loaded endoscopic stapler was then used to divide the appendix at its base. The harmonic scalpel was then used to divide the mesoappendix. Hemostasis was good. The appendix was placed in an Endo Catch bag and removed through the umbilical port site. The right lower quadrant and pelvis was irrigated and hemostasis was found to be good. 5 mm trochars were removed under direct visualization and the abdomen was allowed to collapse. The umbilical port site fascia was closed with 0 Vicryl suture. The wound was irrigated, and the skin of all ports was closed with 4-0 Monocryl subcuticular sutures. Dermabond was placed over the wounds. The patient was extubated in the operating room and taken to the PACU where he recovered without apparent incident. All sponge, instrument and needle counts were correct at the conclusion of the procedure. The patient tolerated the procedure well. I attest to the content of the Intraoperative Record and any orders documented therein. Any exceptions are noted below.
--- NOTE | 2019-11-04 20:58 | Anesthesiology Progress Note ---
Date of Service November 04, 2019 Anesthesia Post Procedure Vital Signs Vital Signs: Temp Pulse Pulse Resp BP BP Pulse Ox 11/04/19 20:56 85 13 132/87 94 11/04/19 20:46 76 20 132/82 96 11/04/19 20:36 90 17 122/87 100 11/04/19 20:28 97.9 F 98 H 13 144/107 H 100 11/04/19 19:06 75 20 138/98 98 11/04/19 17:53 98.2 F 88 20 160/99 H 96 Pain Intensity Right Lower Abdomen: Pain Intensity: 3 Transfer of Care Handoff Completed per policy Notes Mental Status: alert / awake / arousable and participated in evaluation Patient Amnestic to Procedure: Yes Nausea / Vomiting: adequately controlled Pain: adequately controlled Airway Patency, RR, SpO2: stable & adequate BP & HR: stable & adequate Hydration State: stable & adequate Anesthetic Complications: no major complications apparent and Pt Satisfied with anesthetic care
[2019-11-04] MEDS ORDERED: MoRPHine SULFATE 4 MG/ML 1 ML CARP\\VIAL IV PRN (21:26)
[2019-11-04] MEDS ORDERED: OXYCODONE/ACETAMINOPHEN 5mg/325mg TAB PO PRN ×2 (21:26)
[2019-11-04] MEDS ORDERED: MoRPHine SULFATE 2 MG/ML CARP IV PRN (21:26)
[2019-11-04] MEDS ORDERED: DiphenhydrAMINE HCL 50 MG/ML VIAL IV PRN (21:26)
[2019-11-04] MEDS: LACTATED RINGER'S 1,000 ML IV SCH (22:09)
[2019-11-04] MEDS: KETOROLAC 30 MG/ML VIAL IV SCH (22:09)
[2019-11-05] MEDS: cefOXitin 2,000 MG in DEXTROSE 5% 50 ML IV SCH ×2 (03:00→07:28)
[2019-11-05] MEDS: KETOROLAC 30 MG/ML VIAL IV SCH ×2 (03:00→09:14)
[2019-11-05] MEDS: LACTATED RINGER'S 1,000 ML IV SCH (05:22)
--- NOTE | 2019-11-05 08:23 | Surgery Progress Note ---
Date of Service November 05, 2019 Assessment & Plan (1) Acute appendicitis: POD#1 laparoscopic appendectomy patient doing well post operatively vital signs stable and patient feeling well will advance diet as tolerates this AM incisions c/d/i will check up on patient later this AM for probable discharge to home today Subjective Patient resting in bed. Has some osman-incisional soreness, but has been manageable. Tolerated liquids and crackers without nausea/vomiting or increased pain. Voiding on his own. Physical Exam Physical Exam: awake/alert Gastrointestinal (Abdomen): Inspection/Auscultation: + abdominal surgical incision (c/d/i with dermabond overtop) Percussion/Palpation: + abdomen tender (mild ttp osman-incisionally) and abdomen soft Results & Data Vital Signs (Past 12 Hours) Vital Signs Temp Pulse Pulse Pulse Resp BP Pulse Ox 11/05/19 06:55 36.4 C L 48 L 18 107/71 95 11/05/19 03:41 36.5 C 58 L 16 101/64 94 11/05/19 00:00 36.7 C 58 L 16 112/69 94 11/04/19 23:26 36.5 C 57 L 16 122/77 96 11/04/19 22:13 36.7 C 67 16 115/76 94 11/04/19 21:38 36.8 C 69 16 118/75 96 11/04/19 21:15 36.8 C 80 16 124/83 95 11/04/19 21:06 36.6 C 71 17 121/82 97 11/04/19 20:56 85 13 132/87 94 11/04/19 20:46 76 20 132/82 96 11/04/19 20:36 90 17 122/87 100 11/04/19 20:28 36.6 C 98 H 13 144/107 H 100 PG Care Time/CCT Total # of Minutes Spent Total Time Spent with Patient: Total time spent is greater than 50% in coordination of care (as documented) at patient's floor/unit and/or counseling patient: Coding Level of Care Code None Diagnoses Acute appendicitis K35.30 Acute appendicitis type: with localized peritonitis Appendicitis abscess presence: without abscess Appendicitis gangrene presence: without gangrene Appendicitis perforation presence: without perforation (1) Acute appendicitis Acute appendicitis type: with localized peritonitis Appendicitis abscess presence: without abscess Appendicitis gangrene presence: without gangrene Appendicitis perforation presence: without perforation Qualified Code(s): K35.30 - Acute appendicitis with localized peritonitis, without perforation or gangrene
--- NOTE | 2019-11-06 13:04 | Discharge Summary ---
Date of Service November 06, 2019 Admission HPI Per Admitting Provider 33-year-old male presented to the emergency department for right lower quadrant abdominal pain. Pain woke him up from sleep at around 2 or 3:00 this morning. He was able to fall back asleep with the pain returned and woke him up again. He has had intermittent right lower quadrant abdominal pain, sometimes sharp, sometimes dull and achy since then. He did vomit this morning. He ate at lunch but did not feel much like eating. He has a history of kidney stones in the past but this does not feel like that. He has never had symptoms like this before. No personal or family history of inflammatory bowel disease. Principal Diagnosis Acute appendicitis Discharge Exam awake/alert Constitutional no acute distress Gastrointestinal (Abdomen) Inspection/Auscultation: + abdominal surgical incision (c/d/i with dermabond overtop) Percussion/Palpation: + abdomen tender (mild ttp osman-incisionally) and abdomen soft Discharge Data Allergies Allergy/AdvReac Type Severity Reaction Status Date / Time No Known Allergies Allergy Verified 10/06/19 13:32 Consultations 11/04/19 18:49 Consult General Surgery Stat Procedures Performed Operation Date: 11/04/19 19:30 Actual Procedures p Laparoscopic Appendectomy(Not Applicable) - Von Quan DO, FACS Ordered Studies 11/04/19 18:00 CT abd pelvis IV con only Stat Hospital Course (1) Acute appendicitis: This is a 33y M who presented to the [facility] ED on 11/04/19 with abdominal pain. Workup in the ED showed a WBC of 11.[address] a/p concerning for acute appendicitis. The patient was tender to palpation in the RLQ. Patient made NPO with IVF and booked for the OR. On 11/03 the patient went to the OR with Dr. Quan for a laparoscopic appendectomy. The patient tolerated the procedure well, see operative report for full details. Post operatively the patient's diet was advanced, pain managed on prn meds, and incisions clean/dry/intact. Patient was admitted for overnight observation and had no acute issues. On 11/04 the patient was deemed stable for discharge to home. He was given instructions to schedule a follow up within 2 weeks. Total Time Total Time Spent Total Time Spent (In Minutes): 15 Discharge Plan Discharge Items Patient Disposition: Home - Self-Care Reason For Visit: ACUTE APPENDICITIS STATUS POST APPENDECTOMY Discharge Diagnosis: laparoscopic appendectomy Condition on Discharge: Good Activity: Per Instructions section Lifting: No more than 10 pounds Bathing Comment: may shower; no soaking in tubs Exercise/Sports: Wait until after follow-up appointment Driving/Machine Use: do not resume driving while taking narcotics for pain Non-emergency contact: Surgeon Call non-emergency contact if: you have any medication questions, your symptoms worsen, your pain is not controlled, your pain is worsening, your pain is unusual for you, your pain is concerning for you, you have a fever, your temperature is above 101.5, your wound has increased redness, your wound has increased drainage and your wound pain has increased Follow-up/Referrals: Von Quan DO, FACS [Physician] - 11/17/19 9:45 am (You may call the office for a follow up within 2 weeks) Katherine Malagon MD [Primary Care Provider] - Diet: Regular Addtl Attending Provider Instructions: Pending Studies at Discharge: Yes Studies:: surgical pathology Stand-Alone Forms: [facility], Opioid Pain Management, Smoking Cessation Medications and DC Order Prescriptions: New oxycodone-acetaminophen [Percocet] 5-325 mg tablet 1 - 2 tab PO .q4-6h PRN (Reason: pain, for initial therapy, max 6 tabs per day) Qty: 15 RF: 0 Continued meloxicam 7.5 mg tablet 7.5 mg PO DAILY Qty: 30 RF: 2 levofloxacin [Levaquin] 500 mg tablet 500 mg PO DAILY 10 Days Qty: 10 RF: 0 Discharge Orders: Discharge Order (Routine); Ordered 11/05/19 Ordered By: Liset Drummond/Other Patient Handouts: After an Appendectomy Admission Data Admit Date/Time: 11/04/19 20:23 Attending Provider: Von Quan Admit Provider: Von Quan Primary Care Provider: Katherine Malagon Other Interventions: Discharge Summary Assessment (RN) Last Done: 11/05/19 10:44 DC Date/Time DO NOT enter until pt leaves facility: 11/05/19 11:29 Coding Level of Care Code D/C Day Management <30 mins Diagnoses Acute appendicitis K35.30 Acute appendicitis type: with localized peritonitis Appendicitis abscess presence: without abscess Appendicitis gangrene presence: without gangrene Appendicitis perforation presence: without perforation
== END 2019-11-05 11:29 | disposition home or self-care (01) ==
LOC: ED 17:51 → 3N 19:06 → OR 19:06